=== PATIENT | male | born 2000 | race African-American/Black ===

== ENCOUNTER 2024-03-30 12:03 | Emergency (ER) | payer BC, SELFPAY ==
[2024-03-30] MEDS ORDERED: Ibuprofen 800 MG TAB ONE (12:52)
== END 2024-03-30 13:40 | disposition home or self-care (01) ==
LOC: NAV ERS 12:03
DX: J10.1 Influenza due to other identified influenza virus with other respiratory manifestations (principal)
CPT/HCPCS: 87428; 99284